=== PATIENT | male | born 1950 | race Caucasian/White ===

== ENCOUNTER → 2016-10-02 | Outpatient (CLI) | payer OTHER ==
--- NOTE | 2016-10-02 16:01 | XCELERA REPORT ---
[address] [address] Upper Extremity Venous Evaluation Name: SHERI MOLINA Age: 66 yrs Gender: Male : 1950 Patient Status: Outpatient Patient Location: Study Date: 10/02/2016 01:37 PM Procedure: Unilateral duplex scan of the left upper extremity veins was performed, including responses to compression and other maneuvers. Reason For Study: LUE SWELLING M79.89 Ordering Physician: ROS HOGAN Performed By: Suhail Connolly Left Sided Venous Evaluation Normal vessel filling wall to wall, compression and augmentation as well as Colour flow down to the forearm veins. Critical Findings Called in to Dr Hogan. Interpretation Summary Normal compression, patency, spontaneous and phasic flow of the left upper extremity veins. : ROS HOGAN > Emmanuel Matos
== END ==
LOC: SP 12:45
PROVIDERS: ATTEND Internal Medicine
DX: M79.89 Other specified soft tissue disorders (principal)
CPT/HCPCS: 93971